=== PATIENT | male | born 1995 | race Caucasian/White ===

== ENCOUNTER 2019-10-09 20:02 | Emergency (ER) | payer BC ==
[~2019-10-09] VITALS: Ht 182.9 cm; Wt 105.7 kg
[2019-10-09 20:32] VITALS: Ht 182.9 cm; Wt 105.7 kg
[2019-10-09 21:57] VITALS: BP 141/91
== END 2019-10-09 22:11 | disposition home or self-care (01) ==
LOC: ED 20:02
DX: K12.2 Cellulitis and abscess of mouth (principal)
CPT/HCPCS: J2920

== ENCOUNTER 2019-11-07 18:01 | Emergency (ER) | payer BC ==
[~2019-11-07] VITALS: Ht 182.9 cm; Wt 105.2 kg
[2019-11-07 18:27] VITALS: Ht 182.9 cm; Wt 105.2 kg
[2019-11-07 19:32] LABS: BASOPHIL % 0.4 % (0-2); PLATELET COUNT 212 x10^3mcL (130-400); RED CELL DISTRIBUTION WIDTH 12.9 % (11.5-14.5)
[2019-11-07 19:45] LABS: CALCIUM 8.9 mg/dL (8.5-10.1); CARBON DIOXIDE 32.7 mmol/L (21-32); CHLORIDE SERUM 104 mmol/L (98-107); CREATININE SERUM 1.1 mg/dL (0.7-1.3); GFR1 > 60 mL/min; GLUCOSE SERUM 93 mg/dL (74-106); POTASSIUM SERUM 4.4 mmol/L (3.5-5.1); SODIUM SERUM 140 mmol/L (136-145)
[2019-11-07 19:49] LABS: ALBUMIN 3.9 g/dL (3.4-5.0); ALKALINE PHOSPHATASE 86 U/L (46-116); ALT/SGPT 44 U/L (16-63); AST/SGOT 51 U/L (15-37); BILIRUBIN TOTAL 0.37 mg/dL (0.20-1.00); LIPASE 91 IU/L (73-393); TOTAL PROTEIN, SERUM 7.3 g/dL (6.4-8.2)
[2019-11-07 22:00] VITALS: BP 149/97
== END 2019-11-07 22:00 | disposition home or self-care (01) ==
LOC: ED 18:01
PROVIDERS: Emergency Medicine
DX: K62.5 Hemorrhage of anus and rectum (principal); R19.7 Diarrhea, unspecified
CPT/HCPCS: 36415

== ENCOUNTER 2020-08-24 16:50 | Emergency (ER) | payer BC, SELFPAY ==
[~2020-08-24] VITALS: Ht 182.9 cm; Wt 106.6 kg
[2020-08-24 16:52] VITALS: BP 151/91; Ht 182.9 cm; Wt 106.6 kg
== END 2020-08-24 18:00 | disposition home or self-care (01) ==
LOC: ED 16:50
DX: U07.1 COVID-19 (principal)
CPT/HCPCS: U0003